=== PATIENT | female | born 1990 | race Hispanic/Latino ===

== ENCOUNTER 2016-10-07 22:20 | Emergency (ER) | payer SELFPAY ==
[2016-10-07] MEDS ORDERED: Azithromycin 250 MG TAB ONE (22:59)
== END 2016-10-07 23:02 | disposition home or self-care (01) ==
LOC: NAV ERS 22:20
DX: J02.0 Streptococcal pharyngitis (principal); H65.02 Acute serous otitis media, left ear
CPT/HCPCS: 99283